=== PATIENT | male | born 1955 | race Caucasian/White ===

== ENCOUNTER 2019-02-24 00:35 | Observation (INO) | payer MEDICARE ==
[2019-02-24] MEDS ORDERED: SODIUM CHLORIDE 0.9% 1,000 ML IV STA (01:14)
--- NOTE | 2019-02-24 01:29 | ED ---
General Adult HPI - General Chief complaint: Arrhythmia/Palpitations Stated complaint: Headache/Sore Throat Time Seen by Provider: 02/24/19 00:53 Source: EMS Mode of arrival: EMS Limitations: no limitations - History of Present Illness Initial comments: Rob is a 4-year-old gentleman presents the emergency department today via EMS for evaluation of subjective fever, chills, headache and a sore in his mouth. Patient reports that for the past 3 days he has been having these symptoms, he reports that he has noticed a sore in his mouth and feels like his entire mouth is wrong. Patient is a current smoker. Patient reports that he feels like there is too much pressure in his entire head his face and his ears. Patient reports she's not been eating or drinking well. It feels like his heart is racing today and is concerned he is dehydrated. - Related Data Home Medications Medication Instructions Recorded Confirmed Unable To Assess [Unable to Assess] 02/24/19 02/24/19 Allergies Allergy/AdvReac Type Severity Reaction Status Date / Time No Known Allergies Allergy Verified 02/24/19 00:54 Review of Systems ROS Statement: Those systems with pertinent positive or pertinent negative responses have been documented in the HPI. ROS Other: All systems not noted in ROS Statement are negative. Past Medical History Past Medical History: Diabetes Mellitus, Hyperlipidemia, Hypertension Additional Past Medical History / Comment(s): neuropathy History of Any Multi-Drug Resistant Organisms: None Reported Past Surgical History: Appendectomy, Orthopedic Surgery Additional Past Surgical History / Comment(s): eyes, left hand Past Psychological History: No Psychological Hx Reported Smoking Status: Current every day smoker Past Alcohol Use History: None Reported Past Drug Use History: Marijuana General Exam - General Exam Comments Initial Comments: Physical Exam GENERAL: Appears older than stated age HENT: Normocephalic, Atraumatic. Edentulous Dry oral mucosa, posterior oropharynx is unremarkable however there is a ulcer or lesion on the roof of the mouth over the hard palate this could be viral in etiology however given the patient's age and smoking history is concerning for malignancy TM on the left with mucoid effusion, TM on the right somewhat obscured by what appears to be a cholesteatoma in the ear canal however visualized parts of the TM is normal EYES: PERRL, EOMI PULMONARY: Unlabored respirations. No audible rales rhonchi or wheezing was noted. CARDIOVASCULAR: Tachycardic regular ABDOMEN: Soft and nontender with normal bowel sounds. SKIN: Skin is dry with some tenting concerning for dehydration : Deferred NEUROLOGIC: Patient is alert and oriented x3. Moving all extremities spontaneously MUSCULOSKELETAL: Normal extremities with adequate strength and full range of motion. No lower extremity swelling or edema. No calf tenderness. PSYCHIATRIC: Normal psychiatric evaluation. Limitations: no limitations Limitations: no limitations Course Vital Signs 02/24/19 02/24/19 02/24/19 00:48 01:15 01:46 Temperature 100.4 F H 100.2 F H Pulse Rate 90 112 H Pulse Rate [ 90 Apical] Respiratory 18 18 Rate Blood Pressure 113/71 130/88 O2 Sat by Pulse 98 98 Oximetry 02/24/19 03:33 Temperature 99.9 F H Pulse Rate 95 Pulse Rate [ Apical] Respiratory 15 Rate Blood Pressure 120/52 O2 Sat by Pulse 97 Oximetry EKG Findings - EKG Comments: EKG Findings:: EKG was obtained at 12:37 AM, rate is 102 rhythm is sinus there is a leftward deviation, there are normal intervals, DE 184, QRS 110, QTC is 450 there are no acute ST elevations or depressions there is no evidence of acute ischemia or infarction. Medical Decision Making - Medical Decision Making The patient was seen and evaluated history is obtained from the patient and EMS Patient presenting with mouth pain decreased by mouth intake facial pressure co ncern for dehydration arrival patient noted be febrile tachycardic labs and imaging were ordered given that the patient has a lesion in the mouth is concerning for possible oral cancer CT of the sinuses as well as the brain with and without contrast was ordered Labs are reviewed reveal hyperglycemia no other significant abnormalities Chest x-ray suggestive of a pneumonia patient is noted to be imminently tachycardic with a low-grade fever. Given the patient's lack of outpatient follow-up, concern for dehydration, concern for pneumonia, concern for a possible oral lesion which could be cancer ous due feel the patient does warrant further observation here in the hospital. Patient will be admitted for community-acquired pneumonia, fever, uncontrolled diabetes - Lab Data Result diagrams: 02/24/19 01:00 02/24/19 01:00 Lab Results 02/24/19 02/24/19 02/24/19 Range/Units 01:00 01:00 01:00 WBC 9.8 (3.8-10.6) k/uL RBC 5.27 (4.30-5.90) m/uL Hgb 15.2 (13.0-17.5) gm/dL Hct 45.7 (39.0-53.0) % MCV 86.8 (80.0-100.0) fL MCH 28.8 (25.0-35.0) pg MCHC 33.2 (31.0-37.0) g/dL RDW 14.7 (11.5-15.5) % Plt Count 270 (150-450) k/uL Neutrophils % 81 % Lymphocytes % 9 % Monocytes % 6 % Eosinophils % 1 % Basophils % 1 % Neutrophils # 8.0 H (1.3-7.7) k/uL Lymphocytes # 0.9 L (1.0-4.8) k/uL Monocytes # 0.6 (0-1.0) k/uL Eosinophils # 0.1 (0-0.7) k/uL Basophils # 0.1 (0-0.2) k/uL PT 10.8 (9.0-12.0) sec INR 1.0 (<1.2) APTT 24.8 (22.0-30.0) sec Sodium 136 L (137-145) mmol/L Potassium 4.6 (3.5-5.1) mmol/L Chloride 100 (98-107) mmol/L Carbon Dioxide 26 (22-30) mmol/L Anion Gap 10 mmol/L BUN 16 (9-20) mg/dL Creatinine 0.79 (0.66-1.25) mg/dL Est GFR (CKD-EPI)AfAm >90 (>60 ml/min/1.73 sqM) Est GFR (CKD-EPI)NonAf >90 (>60 ml/min/1.73 sqM) Glucose 378 H (74-99) mg/dL Calcium 9.8 (8.4-10.2) mg/dL Magnesium 1.5 L (1.6-2.3) mg/dL Total Bilirubin 0.5 (0.2-1.3) mg/dL AST 11 L (17-59) U/L ALT 26 (21-72) U/L Alkaline Phosphatase 128 H (38-126) U/L Troponin I (0.000-0.034) ng/mL Total Protein 5.9 L (6.3-8.2) g/dL Albumin 3.5 (3.5-5.0) g/dL Influenza Type A RNA (Not Detectd) Influenza Type B (PCR) (Not Detectd) 02/24/19 02/24/19 Range/Units 01:00 01:45 WBC (3.8-10.6) k/uL RBC (4.30-5.90) m/uL Hgb (13.0-17.5) gm/dL Hct (39.0-53.0) % MCV (80.0-100.0) fL MCH (25.0-35.0) pg MCHC (31.0-37.0) g/dL RDW (11.5-15.5) % Plt Count (150-450) k/uL Neutrophils % % Lymphocytes % % Monocytes % % Eosinophils % % Basophils % % Neutrophils # (1.3-7.7) k/uL Lymphocytes # (1.0-4.8) k/uL Monocytes # (0-1.0) k/uL Eosinophils # (0-0.7) k/uL Basophils # (0-0.2) k/uL PT (9.0-12.0) sec INR (<1.2) APTT (22.0-30.0) sec Sodium (137-145) mmol/L Potassium (3.5-5.1) mmol/L Chloride (98-107) mmol/L Carbon Dioxide (22-30) mmol/L Anion Gap mmol/L BUN (9-20) mg/dL Creatinine (0.66-1.25) mg/dL Est GFR (CKD-EPI)AfAm (>60 ml/min/1.73 sqM) Est GFR (CKD-EPI)NonAf (>60 ml/min/1.73 sqM) Glucose (74-99) mg/dL Calcium (8.4-10.2) mg/dL Magnesium (1.6-2.3) mg/dL Total Bilirubin (0.2-1.3) mg/dL AST (17-59) U/L ALT (21-72) U/L Alkaline Phosphatase (38-126) U/L Troponin I <0.012 (0.000-0.034) ng/mL Total Protein (6.3-8.2) g/dL Albumin (3.5-5.0) g/dL Influenza Type A RNA Not Detected (Not Detectd) Influenza Type B (PCR) Not Detected (Not Detectd) Disposition Clinical Impression: Pneumonia, Oral lesion, Dehydration, Fever Disposition: ADMITTED IP TO THIS [facility] Condition: Stable Referrals: Nonstaff,Physician [Primary Care Provider] - 1-2 days
[2019-02-24] MEDS ORDERED: ACETAMINOPHEN TAB 325 MG TAB PO STA (01:49)
[2019-02-24] MEDS ORDERED: IBUPROFEN 800 MG TAB PO STA (01:49)
[2019-02-24 01:58] LABS: Basophils # (A) 0.1 k/uL (0-0.2); Basophils % (A) 1 %; Eosinophils # (A) 0.1 k/uL (0-0.7); Eosinophils % (A) 1 %; HCT 45.7 % (39.0-53.0); HGB 15.2 gm/dL (13.0-17.5); Lymphocytes # (A) 0.9 k/uL (1.0-4.8); Lymphocytes % (A) 9 %; MCH 28.8 pg (25.0-35.0); MCHC 33.2 g/dL (31.0-37.0); MCV 86.8 fL (80.0-100.0); Mean Platelet Volume 7.4; Monocytes # (A) 0.6 k/uL (0-1.0); Monocytes % (A) 6 %; Neutrophils % (A) 81 %; Platelet Count 270 k/uL (150-450); RBC 5.27 m/uL (4.30-5.90); RDW 14.7 % (11.5-15.5); WBC 9.8 k/uL (3.8-10.6)
[2019-02-24 02:07] LABS: ALT 26 U/L (21-72); AST 11 U/L (17-59); Albumin 3.5 g/dL (3.5-5.0); Alkaline Phosphatase 128 U/L (38-126); Anion Gap 10 mmol/L; Blood Urea Nitrogen 16 mg/dL (9-20); Calcium 9.8 mg/dL (8.4-10.2); Carbon Dioxide 26 mmol/L (22-30); Chloride 100 mmol/L (98-107); Glucose 378 mg/dL (74-99); Magnesium 1.5 mg/dL (1.6-2.3); Potassium 4.6 mmol/L (3.5-5.1); Sodium 136 mmol/L (137-145); Total Bilirubin 0.5 mg/dL (0.2-1.3); Total Protein 5.9 g/dL (6.3-8.2)
[2019-02-24 02:18] LABS: Partial Thromboplastin Time 24.8 sec (22.0-30.0); Prothrombin Time 10.8 sec (9.0-12.0)
[2019-02-24] MEDS ORDERED: INSULIN REGULAR 100 UNIT/ML VIAL SQ ONE ×2 (02:36→05:20)
--- NOTE | 2019-02-24 02:48 | CT ---
EXAM: CT Head Without And With Intravenous Contrast CLINICAL HISTORY: ITS.REASON CT Reason: Pain TECHNIQUE: Axial computed tomography images of the head/brain without and with intravenous contrast. CTDI is 56 mGy and DLP is 1629 mGy-cm. This CT exam was performed using one or more of the following dose reduction techniques: automated exposure control, adjustment of the mA and/or kV according to patient size, and/or use of iterative reconstruction technique. COMPARISON: No relevant prior studies available. FINDINGS: Brain: Unremarkable. No hemorrhage. No significant white matter disease. No edema. Normal enhancement. Ventricles: No hydrocephalus. Bones/joints: Unremarkable. Soft tissues: Unremarkable. Sinuses: Unremarkable. Mastoid air cells: Clear. IMPRESSION: No acute hemorrhage, hydrocephalus, or mass effect.
--- NOTE | 2019-02-24 02:49 | CT ---
EXAM: CT Maxillofacial Sinuses Without Intravenous Contrast CLINICAL HISTORY: ITS.REASON CT Reason: Pain TECHNIQUE: Computed tomography images of the maxillofacial sinuses without intravenous contrast. CTDI is 56 mGy and DLP is 1543 mGy-cm. This CT exam was performed using one or more of the following dose reduction techniques: automated exposure control, adjustment of the mA and/or kV according to patient size, and/or use of iterative reconstruction technique. COMPARISON: No relevant prior studies available. FINDINGS: Maxillary sinuses: Unremarkable. No air-fluid levels. Sphenoid sinuses: Trace left opacification. No air-fluid levels. Frontal sinuses: Unremarkable. No air-fluid levels. Ethmoid air cells: Unremarkable. No air-fluid levels. Nasal cavity/septum: Unremarkable. Bones/joints: No acute fracture. Soft tissues: Unremarkable. Ostiomeatal units: Opacified right infundibulum. IMPRESSION: No evidence of acute or chronic sinusitis. Mild paranasal sinus disease.
--- NOTE | 2019-02-24 03:25 | XR ---
EXAM: XR Chest, 2 Views CLINICAL HISTORY: ITS.REASON XR Reason: dysrhythmia TECHNIQUE: Frontal and lateral views of the chest. COMPARISON: No relevant prior studies available. IMPRESSION: Normal heart size. Increased opacity in the left lower lobe, possibly representing infection, edema, or atelectasis. No pleural fusion.
[2019-02-24] MEDS: SODIUM CHLORIDE 0.9% 1,000 ML IV SCH ×2 (04:00→08:38)
[2019-02-24] MEDS ORDERED: AZITHROMYCIN 500 MG in SODIUM CHLORIDE 0.9% 250 ML IVPB ONE (04:00)
[2019-02-24] MEDS ORDERED: IPRATROPIUM-ALBUTEROL 3 ML NEB INHALATION PRN (04:16)
[2019-02-24] MEDS ORDERED: PNEUMONIA PROTOCOL UTILIZED 1 EACH MISC PO PRN (04:16)
[2019-02-24 05:12] LABS: Glucose,Whole Blood 338 mg/dL (75-99)
[2019-02-24] MEDS ORDERED: SODIUM CHLORIDE 0.9% 1,000 ML IV ONE (05:32)
[2019-02-24 06:56] LABS: Glucose,Whole Blood 282 mg/dL (75-99)
[2019-02-24 07:48] LABS: Glucose,Whole Blood 260 mg/dL (75-99)
[2019-02-24] MEDS: INSULIN ASPART (NovoLOG) 100 UNIT/ML VIAL SQ SCH ×4 (08:37→21:09)
[2019-02-24] MEDS: ACETAMINOPHEN TAB 325 MG TAB PO PRN (11:22)
[2019-02-24] MEDS ORDERED: LIDOCAINE VISCOUS 2% 15 ML CUP MUCOUS MEM PRN (11:46)
[2019-02-24 12:14] LABS: Glucose,Whole Blood 244 mg/dL (75-99)
--- NOTE | 2019-02-24 13:26 | CONS ---
CONSULTATION REASON FOR CONSULTATION: Oral lesion. HISTORY: This is a 64-year-old white male who came into the ER last night with headache and palpitations. He also has a sore in his mouth. He has had the headache and palpitation for about 3 days. He states that he has had a sore on the roof of his mouth for about a week, but it has worsened over the last 2 days. He had workup including CT scan of the head which was negative. CT scan of the sinuses showed opacification of the right ostiomeatal unit and traced left sphenoid opacification with only minimal disease. Chest x-ray showed a possible left lower lobe pneumonia. He has been started on antibiotics. He does have dentures and states that the roof of the mouth has been too sore to wear these. He has had no fever or chills at home. He has not had difficulties with the roof of the mouth previously. PAST MEDICAL HISTORY: Diabetes, hyperlipidemia, hypertension, neuropathy. PAST SURGICAL HISTORY: Appendectomy, left hand surgery. SOCIAL HISTORY: He does smoke. Alcohol use denied. History of marijuana use, but none now. ALLERGIES: No known drug allergies. MEDICATIONS: At home, Neurontin, Amaryl, HydroDIURIL, Motrin. REVIEW OF SYSTEMS: Noncontributory other than as above. PHYSICAL EXAM: GENERAL: A well-developed adult white male in no acute distress. Voice is normal. No respiratory difficulty. HEENT: Head normocephalic and atraumatic. The ears show the canals have small osteomas bilaterally. The canals are otherwise unremarkable. Tympanic membranes unremarkable mobile. Nose shows no drainage or obstruction. There is tar staining in the anterior nares. Oral cavity shows the patient is edentulous. On the central and midline hard palate there is a lesion measuring 1 cm across with some mild erythema and this is smooth and rounded. Within the central portion there is a shallow ulceration approximately 3 mm cross. This is all circular in nature. The oropharynx is unremarkable. NECK: Supple without adenopathy or tenderness. ASSESSMENT: Hard palate ulceration, most likely viral etiology. PLAN: Given the acute nature of this, swabbed for a bacterial culture. Would hold off on biopsy presently as, if this is viral in nature, this was just further retard healing. Certainly if this is persistent over the next couple of weeks, then this should be biopsied. The patient can follow up in the office within the next 2 weeks to recheck this area. I reviewed this with him today. He will be in hospital otherwise for control of his blood sugar and treatment of his pneumonia. I did order some viscous lidocaine to be used topically in the meantime, and he will refrain from his denture use until this is healed. This may be traumatic in nature also. He can continue a soft diet in the meantime. If there are questions regarding this consultation, please feel free to contact me. PILAR / LILIYA: [id number] /
[2019-02-24] MEDS: GABAPENTIN 300 MG CAP PO SCH ×2 (15:30→20:05)
[2019-02-24 17:22] LABS: Glucose,Whole Blood 254 mg/dL (75-99)
[2019-02-24] MEDS ORDERED: HYDROmorphone 0.5 MG/0.5 ML SYRINGE IVP PRN (18:01)
[2019-02-24] MEDS: NICOTINE 21MG/24HR PATCH TRANSDERM SCH (20:06)
[2019-02-24] MEDS: GLIMEPIRIDE 4 MG TAB PO SCH (20:06)
[2019-02-24] MEDS: metFORMIN 500 MG TAB PO SCH (20:06)
[2019-02-24 20:31] LABS: Glucose,Whole Blood 220 mg/dL (75-99)
[2019-02-24] MEDS ORDERED: NAPROXEN 250 MG TAB PO ONE (21:00)
[2019-02-24] MEDS ORDERED: ATORVASTATIN 40 MG TAB PO SCH (21:00)
[2019-02-24] MEDS: PIPERACILLIN-TAZOBACTAM 3.375 GM in SODIUM CHLORIDE 0.9% 100 ML IVPB SCH (21:10)
--- NOTE | 2019-02-25 03:44 | HP ---
HISTORY AND PHYSICAL DATE OF ADMISSION: 02/24/2019 PRESENTING COMPLAINT: Pain in the roof of the mouth. HISTORY OF PRESENTING COMPLAINT: This is a 64-year-old patient who follows with visiting physician, Dr. Mora ). Chronic stable medical conditions include diabetes, hypertension, hyperlipidemia, diabetic peripheral neuropathy. The patient noticed a lesion in the roof of the mouth for about a week, which is rather sore, finding it difficult to eat and also having referred headaches from the same. No change in vision. No trouble walking. The patient is a long-standing smoker. No fever and chills. The patient has a baseline cough. No sputum production. Initial CT scan of the sinuses done in the ER was nonspecific. REVIEW OF SYSTEMS: CONSTITUTIONAL: None. HEENT: Headache and as above. RESPIRATORY: Occasional cough. CARDIOVASCULAR: None. GASTROINTESTINAL: None. MUSCULOSKELETAL: None. DERMATOLOGICAL: Numbness, tingling in the feet. HEMATOLOGIC: None. LYMPHATICS: None. PSYCHIATRY: None. NEUROLOGICAL: None. PAST MEDICAL HISTORY: Diabetes, hyperlipidemia, hypertension, peripheral neuropathy. PAST SURGICAL HISTORY: Appendectomy, orthopedic surgery, surgery of the eyes and left hand. SOCIAL HISTORY: Smokes at least a pack a day. Lives by himself. Has used marijuana in the past. HOME MEDICATIONS: 1. Metformin 1000 mg b.i.d. 2. Hydrochlorothiazide 25 mg p.o. daily. 3. Vitamin D3 2000 units p.o. daily. 4. Amaryl 4 mg p.o. b.i.d. 5. Aspirin 81 mg p.o. daily. 6. Lisinopril 40 mg p.o. daily. 7. Lipitor 40 mg q.h.s. 8. Gabapentin 600 mg t.i.d. ALLERGIES: None. PHYSICAL EXAMINATION: Vital signs on presentation: Temperature 100.4, pulse 98, respiratory rate 18, blood pressure 113/71, pulse ox 98% on room air. GENERAL APPEARANCE: Sitting up, not in distress. EYES: Pupils equal, conjunctivae normal. HEENT: External appearance of ears and nose normal. Oral cavity, at the roof of the mouth there is an area of tenderness, slight opening. No obvious surrounding hyperemia. NECK: JVD not raised. Mass not palpable. Respiratory effort normal. LUNGS: Slightly decreased breath sounds. CARDIOVASCULAR: First and second sounds normal. No edema. ABDOMEN: Soft, nontender. Liver and spleen not palpable. LYMPHATIC: No lymph node palpable in neck or axillae. PSYCHIATRY: Alert and oriented x3. Mood and affect normal. NEUROLOGICAL: Pupils equal. Cranial nerves grossly intact. Power and sensation grossly intact. INVESTIGATIONS: White count 9.8, hemoglobin 15.2, potassium 4.6, BUN and creatinine is normal. Chest x- ray film personally reviewed by me shows possible atelectasis on the left side. Accu- Cheks 378, 338, 282. Influenza A and B negative. EKG tracing personally reviewed by me shows sinus tachycardia with interventricular block. CT scan of the brain nil acute. CT scan of the sinuses unremarkable. ASSESSMENT: 1. There is that could be likely infected, localized abscess ulcer of the roof of the mouth, but there is no sinus involvement. It seems the patient is probably having referred headache from the same. No other neurological manifestations. 2. Diabetes mellitus type 2 on oral hypoglycemic. 3. Essential hypertension. 4. Hyperlipidemia. 5. Diabetic peripheral neuropathy. 6. Chronic nicotine dependence, patient is a cigarette smoker. 7. Chronic obstructive pulmonary disease. 8. No clinical evidence of pneumonia as patient has no sputum, cough is at baseline. PLAN: Will give patient IV Zosyn to cover the lesion in the mouth. Other home medications are resumed. Will give some bronchodilators. The patient is having trouble eating, hence, will put the patient on a liquid diet. Patient may use a straw for the same. Dr. Dutta was consulted from ENT. His consult is appreciated. Will put the patient on anti-inflammatory and Tylenol around the clock. Will watch the patient for 24 hours and patient will then be able to go home hopefully if doing okay on oral antibiotics and anti-inflammatory. MMODL / IJN: [id number] /
[2019-02-25] MEDS: SODIUM CHLORIDE 0.9% 1,000 ML IV SCH ×2 (03:58→10:44)
[2019-02-25] MEDS: ACETAMINOPHEN TAB 325 MG TAB PO PRN (05:13)
[2019-02-25] MEDS: PIPERACILLIN-TAZOBACTAM 3.375 GM in SODIUM CHLORIDE 0.9% 100 ML IVPB SCH ×2 (05:15→13:21)
[2019-02-25] MEDS: GLIMEPIRIDE 4 MG TAB PO SCH (06:58)
[2019-02-25] MEDS: GABAPENTIN 300 MG CAP PO SCH ×2 (06:58→16:15)
[2019-02-25] MEDS: NICOTINE 21MG/24HR PATCH TRANSDERM SCH (06:59)
[2019-02-25] MEDS: NAPROXEN 250 MG TAB PO SCH ×2 (06:59→16:15)
[2019-02-25] MEDS: metFORMIN 500 MG TAB PO SCH (06:59)
[2019-02-25] MEDS: INSULIN ASPART (NovoLOG) 100 UNIT/ML VIAL SQ SCH ×3 (07:10→17:19)
[2019-02-25 07:22] LABS: Glucose,Whole Blood 241 mg/dL (75-99)
[2019-02-25] MEDS ORDERED: CHOLECALCIFEROL 1,000 UNIT TAB PO SCH (09:00)
[2019-02-25] MEDS ORDERED: ASPIRIN 81 MG PO SCH (09:00)
[2019-02-25] MEDS ORDERED: LISINOPRIL 20 MG TAB PO SCH (09:00)
[2019-02-25] MEDS ORDERED: HYDROCHLOROTHIAZIDE 25 MG TAB PO SCH (09:00)
[2019-02-25 11:47] LABS: Glucose,Whole Blood 345 mg/dL (75-99)
[2019-02-25 15:44] VITALS: BP 140/75; PULSE 70; RESP 18; TEMP 97.7
[2019-02-25 17:05] LABS: Glucose,Whole Blood 254 mg/dL (75-99)
--- NOTE | 2019-02-26 05:53 | DS ---
DISCHARGE SUMMARY DATE OF ADMISSION: 02/24/2019 DATE OF DISCHARGE: 02/25/2019 FINAL DIAGNOSES: 1. Infected lesion on the roof of the mouth. 2. Diabetes mellitus type 2 on oral hypoglycemic. 3. Essential hypertension. 4. Hyperlipidemia. 5. Diabetic peripheral neuropathy. 6. Chronic nicotine dependence. Patient is a cigarette smoker. 7. Chronic obstructive pulmonary disease. 8. No clinical evidence of pneumonia. CONSULTATION: Dr. Dutta. HOSPITAL COURSE: This patient presented with painful small lesion on the roof of the mouth, rather tender, but the patient's CT scan of the head and sinuses all negative. The patient was started on IV Zosyn, non-steroidals in which he remarkably responded. Seen by Dr. Dutta, who wants to see the patient back in the office. The patient was told to stay on a liquid diet and advance as tolerated. On examination, temperature 97.7, pulse 70, respirations 18, blood pressure 140/75, pulse ox 96% on room air. LUNGS: Decreased breath sounds. ORAL CAVITY: Lesion on the roof of the mouth with tenderness, improving. INVESTIGATIONS: Accu-Cheks noted. DISCHARGE MEDICATIONS: 1. Aspirin 81 mg a day. 2. Lipitor 40 mg q.h.s. 3. Vitamin D3, 2000 units p.o. daily. 4. Gabapentin 600 mg t.i.d. 5. Amaryl 4 mg b.i.d. 6. Hydrochlorothiazide 25 mg a day. 7. Lisinopril 40 mg a day. 8. Metformin 1000 mg b.i.d. 9. Tylenol 650 mg q.6 p.r.n. 10.Ventolin HFA 1 or 2 puffs q.6 p.r.n. 11.Augmentin 875 one tablet q.12, fourteen tablets. 12.Atrovent HFA 2 puffs q.i.d. 13.Naproxen 250 mg t.i.d., 21 tablets. 14.Nicotine 21 mg patch. 15.Prandin 1 mg p.o. a.c. t.i.d. Follow up with Dr. Dutta in 1 week. Follow up with visiting Physician, Dr. Gomez in 1 week. Full liquid diet and advance as tolerated. MMODL / IJN: [id number] /
== END 2019-02-25 17:52 | disposition home or self-care (01) ==
LOC: EC 00:35 → 4SSUR 04:16 → 4MS4W 02-25 12:00
PROVIDERS: ADMIT Hospitalist; ATTEND Hospitalist
DX: K13.79 Other lesions of oral mucosa (principal); I10 Essential (primary) hypertension; E11.42 Type 2 diabetes mellitus with diabetic polyneuropathy; F17.210 Nicotine dependence, cigarettes, uncomplicated; E78.5 Hyperlipidemia, unspecified; J44.9 Chronic obstructive pulmonary disease, unspecified; E86.0 Dehydration; Z79.82 Long term (current) use of aspirin; Z79.84 Long term (current) use of oral hypoglycemic drugs; Z79.899 Other long term (current) drug therapy
CPT/HCPCS: 96361 ×3; 96366 ×2; 96367 ×2; 96375; 96365; 99285; 36415; 94640; 93005; 97162; 80053; 83735; 84484; 85025; 85610; 85730; 87070; 87205; 87077; 87186; 87502; 71046; 70470; 70488; G0378 ×2; S4990 ×2; J2543 ×2; J0456; J0696; J1170; Q9967